=== PATIENT | female | born 1995 | race Caucasian/White ===

== ENCOUNTER 2017-07-05 05:18 | Inpatient (IN) ==
[2017-07-05] MEDS ORDERED: MEPERIDINE 50 MG/1 ML VIAL IV PRN (05:35)
[2017-07-05] MEDS ORDERED: ACETAMINOPHEN 325 MG TABLET PO PRN ×2 (05:35→18:58)
[2017-07-05] MEDS ORDERED: ONDANSETRON 4 MG/2 ML VIAL IV PRN ×2 (05:35→18:58)
[2017-07-05] MEDS ORDERED: OXYTOCIN/LR 20 UNIT/1,000 ML BAG IV SCH (06:00)
[2017-07-05] MEDS: LACTATED RINGERS 1,000 ML IV SCH ×2 (06:03→13:35)
[2017-07-05 06:23] LABS: Basophils % 0.1 % (0.0-0.8); Eosinophils # 0.1 10*3/uL (0.0-0.87); Eosinophils % 0.6 % (0.00-10.9); Hemoglobin 10.7 GM/DL (12.0-16.0); Immature Granulocytes % 0.3 %; Immature Granulocytes Absolute 0.03 #; Lymphocytes # 2.1 10*3/uL (1.4-4.0); Lymphocytes % 22.3 % (21.3-54.2); Mean Corpuscular HGB Conc 33.4 GM/DL (32-36); Mean Corpuscular Hemoglobin 28 PG (27-34); Mean Corpuscular Volume 83.6 FL (87-102); Mean Platelet Volume 10.4 FL (9.6-12.0); Monocytes # 0.9 10*3/uL (0.11-0.8); Monocytes % 9.1 % (1.7-12.7); Neutrophils # 6.3 10*3/uL (1.4-7.4); Neutrophils % 67.6 % (38.7-73.9); Platelet Count 301 T/CUMM (130-400); Red Blood Count 3.83 MC/CUMM (3.8-5.5); Red Cell Distribution Width 13.2 % (9.3-17.3); White Blood Count 9.3 T/CUMM (4-12)
[2017-07-05] MEDS ORDERED: ePHEDrine 50 MG/ML AMP IV PRN (09:24)
[2017-07-05] MEDS ORDERED: FAMOTIDINE 20 MG/2 ML VIAL IV ONE (09:24)
[2017-07-05] MEDS ORDERED: CITRIC ACID/SODIUM CITRATE 30 ML UDCUP PO ONE (09:24)
[2017-07-05] MEDS ORDERED: LACTATED RINGERS 1,000 ML IV ONE (09:24)
[2017-07-05] MEDS ORDERED: hydrOXYzine HCL 25 MG/1 ML VIAL IM PRN (09:25)
[2017-07-05] MEDS ORDERED: diphenhydrAMINE 50 MG/1 ML VIAL IV PRN ×2 (09:25)
[2017-07-05] MEDS ORDERED: PROMETHAZINE 25 MG/1 ML VIAL IM ONE (09:25)
[2017-07-05] MEDS ORDERED: fentaNYL 2 MCG/ROPIV 0.2% EPID 150 ML EPIDURAL SCH (09:30)
[2017-07-05 12:13] LABS: Apearance,Urine CLEAR (Clear); Bilirubin,Urine Negative (Negative); Blood, Urine Negative (Negative); Glucose,Urine (UA) Negative (Negative); Ketones,Urine 20 mg/dL (Negative); Mucus,Urine Occasional /LPF (Occasional); Nitrite,Urine Negative (Negative); Protein,Urine Negative; RBC,Urine <1 /HPF (0-4); Squamous Epithelial Cell,Urine Occasional /HPF (0-10); Urine Color Straw (Yellow); Urine Specific Gravity 1.008 (1.001-1.035); Urine Urobilinogen < 2.0 EU/DL (0.2-1.0); WBC,Urine <1 /HPF (0-6)
[2017-07-05] MEDS ORDERED: miSOPROStol 200 MCG TABLET ONE (17:54)
[2017-07-05] MEDS ORDERED: METHYLERGONOVINE 0.2 MG/1 ML AMP ONE (17:54)
[2017-07-05] MEDS ORDERED: LIDOCAINE 1% 50 ML VIAL ONE (17:54)
[2017-07-05] MEDS ORDERED: LIDOCAINE 1% 20 ML VIAL INFILTRAT ONE (18:34)
[2017-07-05] MEDS ORDERED: HYDROCORTISONE 2.5% RECTAL CREAM 30 GM TUBE TOP PRN (18:58)
[2017-07-05] MEDS ORDERED: RHO(D) IMMUNE GLOBULIN 300 MCG SYRINGE IM ONE (18:58)
[2017-07-05] MEDS ORDERED: DIPH/TET/ACEL PERT BOOSTER VACCINE 0.5 ML VIAL IM ONE (18:58)
[2017-07-05] MEDS ORDERED: LANOLIN 50% CREAM 0.3 OZ TUBE TOP PRN (18:58)
[2017-07-05] MEDS ORDERED: OXYTOCIN/LR 20 UNIT/1,000 ML BAG IV ONE (18:58)
[2017-07-05] MEDS ORDERED: MEASLES/MUMPS/RUBELLA VACCINE 0.5 ML VIAL SUBCUT ONE (18:58)
[2017-07-05] MEDS ORDERED: oxyCODONE/ACETAMINOPHEN 5-325 MG TABLET PO PRN (18:58)
[2017-07-05] MEDS ORDERED: BISACODYL 10 MG SUPP RECTAL PRN (18:58)
[2017-07-05] MEDS ORDERED: WITCH HAZEL PADS 100/JAR TOP PRN (18:58)
[2017-07-05] MEDS ORDERED: BENZOCAINE 20%/MENTHOL 0.5% SPRAY 56 GM CAN TOP PRN (18:58)
[2017-07-05] MEDS ORDERED: LIDOCAINE 1% 50 ML VIAL INFILTRAT ONE (19:00)
[2017-07-05] MEDS: DOCUSATE SODIUM 100 MG CAPSULE PO SCH (22:24)
[2017-07-05] MEDS: oxyCODONE/ACETAMINOPHEN 5-325 MG TABLET PO PRN (22:29)
[2017-07-06] MEDS: IBUPROFEN 800 MG TABLET PO PRN ×3 (04:50→16:29)
[2017-07-06 07:00] LABS: Basophils % 0.2 % (0.0-0.8); Eosinophils # 0.1 10*3/uL (0.0-0.87); Eosinophils % 0.4 % (0.00-10.9); Hematocrit 25.2 VOL% (35.7-47.0); Hemoglobin 8.4 GM/DL (12.0-16.0); Immature Granulocytes % 0.5 %; Immature Granulocytes Absolute 0.06 #; Lymphocytes # 2.5 10*3/uL (1.4-4.0); Mean Corpuscular HGB Conc 33.3 GM/DL (32-36); Mean Corpuscular Hemoglobin 28 PG (27-34); Mean Platelet Volume 10.3 FL (9.6-12.0); Monocytes # 1.3 10*3/uL (0.11-0.8); Monocytes % 10.2 % (1.7-12.7); Neutrophils # 8.5 10*3/uL (1.4-7.4); Neutrophils % 68.7 % (38.7-73.9); Platelet Count 239 T/CUMM (130-400); Red Cell Distribution Width 13.5 % (9.3-17.3); White Blood Count 12.3 T/CUMM (4-12)
[2017-07-06] MEDS: DOCUSATE SODIUM 100 MG CAPSULE PO SCH ×2 (08:19→22:39)
[2017-07-06] MEDS: oxyCODONE/ACETAMINOPHEN 5-325 MG TABLET PO PRN ×3 (10:29→22:39)
[2017-07-07] MEDS ORDERED: ONDANSETRON 4 MG TABLET PO PRN (05:31)
[2017-07-07] MEDS: oxyCODONE/ACETAMINOPHEN 5-325 MG TABLET PO PRN ×2 (05:36→11:52)
[2017-07-07 07:35] VITALS: BP 100/56
[2017-07-07] MEDS: DOCUSATE SODIUM 100 MG CAPSULE PO SCH (09:21)
[2017-07-07] MEDS: IBUPROFEN 800 MG TABLET PO PRN (12:13)
== END 2017-07-07 13:10 | disposition home or self-care (01) | DRG 775 ==
LOC: N.LD 05:18 → N.OB 22:00
PROVIDERS: ADMIT Obstetrics & Gynecology; ATTEND Obstetrics & Gynecology

== ENCOUNTER 2020-01-15 05:50 | Inpatient (IN) ==
[2020-01-15] MEDS: LACTATED RINGERS 1,000 ML IV SCH ×2 (06:25→12:58)
[2020-01-15] MEDS ORDERED: BUTORPHANOL 2 MG/ML VIAL IV PRN (06:34)
[2020-01-15] MEDS ORDERED: ONDANSETRON 4 MG/2 ML VIAL IV PRN ×3 (06:34→18:36)
[2020-01-15] MEDS ORDERED: MEPERIDINE 50 MG/1 ML VIAL IV PRN (06:34)
[2020-01-15] MEDS ORDERED: AMPICILLIN INJ 2,000 MG in SODIUM CHLORIDE 0.9% 100 ML IV ONE (06:38)
[2020-01-15 06:58] LABS: Basophils % 0.1 % (0.0-0.8); Eosinophils # 0.1 10*3/uL (0.0-0.87); Eosinophils % 1.1 % (0.00-10.9); Hematocrit 30.5 VOL% (35.7-47.0); Hemoglobin 9.9 GM/DL (12.0-16.0); Immature Granulocytes % 0.4 %; Immature Granulocytes Absolute 0.03 #; Lymphocytes # 1.8 10*3/uL (1.4-4.0); Lymphocytes % 23.7 % (21.3-54.2); Mean Corpuscular HGB Conc 32.5 GM/DL (32-36); Mean Corpuscular Volume 83.3 FL (87-102); Mean Platelet Volume 10.5 FL (9.6-12.0); Monocytes % 8.7 % (1.7-12.7); Platelet Count 241 T/CUMM (130-400); Red Blood Count 3.66 MC/CUMM (3.8-5.5); Red Cell Distribution Width 14.6 % (9.3-17.3); White Blood Count 7.6 T/CUMM (4-12)
[2020-01-15] MEDS ORDERED: OXYTOCIN/LR 20 UNIT/1,000 ML BAG IV SCH (07:00)
[2020-01-15 07:19] LABS: Alanine Aminotransferase 17 U/L (13-56); Albumin 2.6 G/DL (3.4-5.0); Alkaline Phosphatase 147 U/L (45-117); Aspartate Amino Transferase 27 U/L (0-37); Bilirubin,Total < 0.39 MG/DL (0.2-1.0); Blood Urea Nitrogen 4 MG/DL (7-18); Calcium 8.3 MG/DL (8.5-10.1); Estimated Glom Filtration Rate 150 ML/MIN; Glucose 82 MG/DL (74-106); Osmolality,Calculated 272.5 MOS/KG (273-304); Total Protein 6.2 G/DL (6.4-8.3)
[2020-01-15] MEDS: AMPICILLIN INJ 1,000 MG in SODIUM CHLORIDE 0.9% 100 ML IV SCH ×2 (10:44→15:23)
[2020-01-15] MEDS ORDERED: diphenhydrAMINE 50 MG/1 ML VIAL IV PRN ×2 (12:46)
[2020-01-15] MEDS ORDERED: PROMETHAZINE 25 MG/1 ML VIAL IM PRN (12:46)
[2020-01-15] MEDS ORDERED: NALOXONE 0.4 MG/ML VIAL IV PRN (12:46)
[2020-01-15] MEDS ORDERED: ePHEDrine 50 MG/ML VIAL IV PRN ×2 (12:46)
[2020-01-15] MEDS ORDERED: hydrOXYzine HCL 25 MG/1 ML VIAL IM PRN (12:46)
[2020-01-15] MEDS ORDERED: FAMOTIDINE 20 MG/2 ML VIAL IV ONE (12:46)
[2020-01-15] MEDS ORDERED: CITRIC ACID/SODIUM CITRATE 30 ML UDCUP PO ONE (12:46)
[2020-01-15] MEDS ORDERED: CITRIC ACID/SODIUM CITRATE 30 ML UDCUP ONE (12:51)
[2020-01-15] MEDS ORDERED: fentaNYL 2 MCG/ROPIV 0.2% EPID 100 ML EPIDURAL SCH (13:00)
[2020-01-15 14:33] LABS: Bilirubin,Urine Negative (Negative); Blood, Urine Negative (Negative); Glucose,Urine (UA) Negative (Negative); Ketones,Urine 80 mg/dL (Negative); Mucus,Urine Occasional /LPF (Occasional); Nitrite,Urine Negative (Negative); Protein,Urine Negative; RBC,Urine <1 /HPF (0-4); Urine Appearance CLEAR (Clear); Urine Color Yellow (Yellow); Urine Specific Gravity 1.012 (1.001-1.035); Urine Urobilinogen < 2.0 EU/DL (0.2-1.0)
[2020-01-15] MEDS ORDERED: miSOPROStoL 200 MCG TABLET ONE (15:19)
[2020-01-15] MEDS ORDERED: CARBOPROST TROMETHAMINE 250 MCG/ML AMP IM ONE (15:20)
[2020-01-15] MEDS ORDERED: METHYLERGONOVINE 0.2 MG/1 ML AMP ONE (15:20)
[2020-01-15] MEDS ORDERED: TRANEXAMIC ACID 1,000 MG/10 ML VIAL ONE (15:20)
[2020-01-15] MEDS ORDERED: SODIUM CHLORIDE 0.9% 0 ML IV ONE (15:21)
[2020-01-15] MEDS ORDERED: METHYLERGONOVINE 0.2 MG/1 ML AMP IM ONE (17:18)
[2020-01-15 17:23] LABS: Cord Arterial Blood HCO3 19.3 MMOL/L
[2020-01-15 17:24] LABS: Cord Venous Blood HCO3 20.8 MMOL/L; Cord Venous Blood PCO2 42.4 MMHG; Cord Venous Blood PO2 28.9 MMHG
[2020-01-15] MEDS ORDERED: RHO(D) IMMUNE GLOBULIN 300 MCG SYRINGE IM ONE (18:36)
[2020-01-15] MEDS ORDERED: oxyCODONE/ACETAMINOPHEN 5-325 MG TABLET PO PRN (18:36)
[2020-01-15] MEDS ORDERED: BISACODYL 10 MG SUPP RECTAL PRN (18:36)
[2020-01-15] MEDS ORDERED: ACETAMINOPHEN 325 MG TABLET PO PRN (18:36)
[2020-01-15] MEDS ORDERED: OXYTOCIN/LR 20 UNIT/1,000 ML BAG IV ONE (18:36)
[2020-01-15] MEDS ORDERED: DIPH/TET/ACEL PERT BOOSTER VACCINE 0.5 ML VIAL IM ONE (18:36)
[2020-01-15] MEDS ORDERED: LANOLIN 50% CREAM 0.3 OZ TUBE TOP PRN (18:36)
[2020-01-15] MEDS ORDERED: MEASLES/MUMPS/RUBELLA VACCINE 0.5 ML VIAL SUBCUT ONE (18:36)
[2020-01-15] MEDS ORDERED: BENZOCAINE 20%/MENTHOL 0.5% SPRAY 56 GM CAN TOP PRN (18:36)
[2020-01-15] MEDS ORDERED: WITCH HAZEL PADS 100/JAR TOP PRN (18:36)
[2020-01-15] MEDS ORDERED: HYDROCORTISONE 2.5% RECTAL CREAM 30 GM TUBE TOP PRN (18:36)
[2020-01-15] MEDS: IBUPROFEN 800 MG TABLET PO PRN (20:31)
[2020-01-15] MEDS: DOCUSATE SODIUM 100 MG CAPSULE PO SCH (20:32)
[2020-01-15] MEDS: oxyCODONE/ACETAMINOPHEN 5-325 MG TABLET PO PRN (22:28)
[2020-01-16] MEDS: oxyCODONE/ACETAMINOPHEN 5-325 MG TABLET PO PRN ×3 (04:27→17:44)
[2020-01-16] MEDS: IBUPROFEN 800 MG TABLET PO PRN ×3 (04:28→16:49)
[2020-01-16 05:41] LABS: Basophils % 0.3 % (0.0-0.8); Eosinophils # 0.1 10*3/uL (0.0-0.87); Eosinophils % 0.6 % (0.00-10.9); Hematocrit 29.1 VOL% (35.7-47.0); Hemoglobin 9.3 GM/DL (12.0-16.0); Immature Granulocytes % 0.3 %; Immature Granulocytes Absolute 0.04 #; Lymphocytes # 2.7 10*3/uL (1.4-4.0); Lymphocytes % 23.4 % (21.3-54.2); Mean Corpuscular Volume 85.3 FL (87-102); Mean Platelet Volume 10.5 FL (9.6-12.0); Monocytes % 9.9 % (1.7-12.7); Neutrophils % 65.5 % (38.7-73.9); Platelet Count 228 T/CUMM (130-400); Red Blood Count 3.41 MC/CUMM (3.8-5.5); Red Cell Distribution Width 14.6 % (9.3-17.3); White Blood Count 11.5 T/CUMM (4-12)
[2020-01-16] MEDS ORDERED: FLUCONAZOLE 150 MG TABLET PO ONE (07:57)
[2020-01-16] MEDS: DOCUSATE SODIUM 100 MG CAPSULE PO SCH ×2 (09:21→20:06)
[2020-01-16] MEDS ORDERED: IBUPROFEN 400 MG TABLET PO PRN (23:30)
[2020-01-17] MEDS: DOCUSATE SODIUM 100 MG CAPSULE PO SCH (09:00)
[2020-01-17 09:07] VITALS: BP 126/79
[2020-01-17] MEDS: oxyCODONE/ACETAMINOPHEN 5-325 MG TABLET PO PRN (10:55)
== END 2020-01-17 13:00 | disposition home or self-care (01) | DRG 807 ==
LOC: N.LDOUT 05:50 → N.LD 05:52 → N.OB 20:15
PROVIDERS: ADMIT Obstetrics & Gynecology; ATTEND Obstetrics & Gynecology